=== PATIENT | male | born 1995 | race African-American/Black ===

== ENCOUNTER 2017-07-14 23:32 | Emergency (ER) | payer MEDICAID ==
[~2017-07-14] VITALS: Ht 190.5 cm; Wt 75.0 kg
[2017-07-15] MEDS ORDERED: LIDOCAINE/EPINEPHR/TETRACAINE 3ML TP ONE (06:15)
[2017-07-15] MEDS ORDERED: TETANUS, DIPHTHERIA, PERTUSSIS VAC/PF 0.5ML (>7YR OLD) IM ONE (06:15)
[2017-07-15] MEDS ORDERED: HYDROCODONE/ACETAMINOPHEN 5/325MG TABLET PO ONE (06:15)
[2017-07-15] MEDS ORDERED: SODIUM BICARBONATE 8.4% MEQ/ML 50ML VIAL IV ONE (06:15)
[2017-07-15] MEDS ORDERED: LIDOCAINE HCL 1%/EPI 1:200,000 30 ML VIAL MC ONE (06:15)
[2017-07-15] MEDS ORDERED: LIDOCAINE 1%/EPI 1:200,000 10 ML VIAL IJ ONE (06:45)
[2017-07-15 07:34] VITALS: BP 122/81
== END 2017-07-15 07:40 | disposition home or self-care (01) ==
LOC: ER 23:32
DX: L02.31 Cutaneous abscess of buttock (principal); J45.909 Unspecified asthma, uncomplicated; F17.200 Nicotine dependence, unspecified, uncomplicated; F12.10 Cannabis abuse, uncomplicated; Z91.010 Allergy to peanuts
CPT/HCPCS: 10060; 90471; 90715; 99283; J3490; Z7610

== ENCOUNTER 2018-08-11 10:48 | Emergency (ER) | payer SELFPAY ==
[~2018-08-11] VITALS: Ht 190.5 cm; Wt 69.0 kg
[2018-08-11 12:04] VITALS: BP 131/81
== END 2018-08-11 12:06 | disposition home or self-care (01) ==
LOC: ER 11:59
DX: L02.31 Cutaneous abscess of buttock (principal); F12.10 Cannabis abuse, uncomplicated; J45.909 Unspecified asthma, uncomplicated; Z91.010 Allergy to peanuts
CPT/HCPCS: 10060; 99283

== ENCOUNTER 2019-02-20 19:01 | Emergency (ER) | payer SELFPAY ==
[~2019-02-20] VITALS: Ht 190.5 cm; Wt 79.0 kg
[2019-02-20] MEDS ORDERED: KETOROLAC 60MG/2ML VIAL IM ONE (19:45)
[2019-02-20] MEDS ORDERED: CYCLOBENZAPRINE 10MG TABLET PO ONE (20:15)
[2019-02-20 21:18] VITALS: BP 132/83
== END 2019-02-21 02:32 | disposition home or self-care (01) ==
LOC: ER 19:01
DX: S29.012A Strain of muscle and tendon of back wall of thorax, initial encounter (principal); X50.0XXA Overexertion from strenuous movement or load, initial encounter; Y93.89 Activity, other specified; Y92.89 Other specified places as the place of occurrence of the external cause; R03.0 Elevated blood-pressure reading, without diagnosis of hypertension; F12.90 Cannabis use, unspecified, uncomplicated
CPT/HCPCS: 96372; 99283; J1885

== ENCOUNTER 2019-03-23 09:16 | Emergency (ER) | payer SELFPAY ==
[~2019-03-23] VITALS: Ht 190.5 cm; Wt 74.0 kg
[2019-03-23 09:27] VITALS: BP 126/90
[2019-03-23] MEDS ORDERED: LIDOCAINE HCL/PF 1% 10 MG/ML 5ML VIAL IJ ONE (10:15)
== END 2019-03-23 10:38 | disposition home or self-care (01) ==
LOC: ER 09:35
DX: L02.31 Cutaneous abscess of buttock (principal)
CPT/HCPCS: 99283

== ENCOUNTER 2019-03-24 21:11 | Emergency (ER) | payer SELFPAY ==
[~2019-03-24] VITALS: Ht 190.5 cm; Wt 76.0 kg
[2019-03-24] MEDS ORDERED: IBUPROFEN 600MG TABLET PO ONE (22:30)
[2019-03-24] MEDS ORDERED: BACITRACIN ZINC OINT UDPKT TOP ONE (22:30)
[2019-03-24] MEDS ORDERED: HYDROCODONE/ACETAMINOPHEN 5/325MG TABLET PO ONE (23:00)
[2019-03-24] MEDS ORDERED: BACITRACIN 15GM TUBE TOP SCH (23:30)
[2019-03-24 23:58] VITALS: BP 132/78
== END 2019-03-24 23:59 | disposition home or self-care (01) ==
LOC: ER 21:11
DX: K61.0 Anal abscess (principal); F12.10 Cannabis abuse, uncomplicated; J45.909 Unspecified asthma, uncomplicated; F17.200 Nicotine dependence, unspecified, uncomplicated
CPT/HCPCS: 46050; 99284